=== PATIENT | male | born 1940 | race Caucasian/White ===

== ENCOUNTER → 2018-05-27 16:52 | Outpatient (CLI) | payer MEDICARE, SELFPAY ==
--- NOTE | 2018-05-27 16:54 | DI.MRI.S_ITS ---
PROCEDURE: MR LUMBAR SPINE WO CON INDICATIONS: LOW BACK PAIN TECHNIQUE: Noncontrast sagittal T1 spin echo and T2 fast echo, sagittal STIR, axial T1 and T2 fast spin echo through the lumbar spine. In cases with scoliosis, additional coronal T2 fast spin echo may be performed. COMPARISON: [facility], CR, XR LUMBAR SPINE 2 OR 3 VIEWS, 04/30/2018, 14:01. [facility] [place], CR, XR LUMBAR SPINE 2 OR 3 VIEWS, 05/22/2018, 16:20. FINDINGS: Image quality: Excellent. Alignment and Curvature: Mild dextrocurvature. There is minimal anterolisthesis of L3 on L4. Bone Marrow: Marrow is of normal overall signal. There are degenerative endplate signal changes. Schmorl's nodes are seen in the inferior endplate of L1 and L2. No acute vertebral body compression fractures. Spinal Cord: Conus medullaris terminates at the T12 level. Visualized cord demonstrates normal signal and size. Paraspinous Soft Tissues: No paravertebral masses. There are multiple renal cysts. Left adrenal is thickened without discrete mass. L1-L2: Mild loss of disc height and disc desiccation. There is diffuse posterior disc bulge and disc protrusion. Mild bilateral facet arthropathy. The central canal is moderately narrowed. Severe bilateral foraminal stenosis. L2-L3: Preserved disc height and mild disc desiccation. There is diffuse posterior disc bulge and disc protrusion. Superimposed posterior central disc extrusion is present with a 9 mm herniated disc fragment. Moderate bilateral facet arthropathy severe hypertrophy of ligamentum flavum. The central canal is severely narrowed. Severe bilateral foraminal stenosis. L3-L4: Preserved disc height and mild disc desiccation. There is diffuse posterior disc bulge and disc protrusion. Severe bilateral facet arthropathy. The central canal is severely narrowed. Severe bilateral foraminal stenosis. L4-L5: Laminectomies. Xeye-lb-gadauehn loss of disc height and disc desiccation. There is diffuse posterior disc bulge and disc osteophyte complex. Severe bilateral facet arthropathy. The central canal is patent. Moderate bilateral foraminal stenosis. L5-S1: Laminectomies. Moderate loss of disc height and disc desiccation. There is diffuse posterior disc bulge and disc osteophyte complex. Moderate bilateral facet arthropathy. The central canal is patent. Moderate right and mild left foraminal stenosis. IMPRESSION: 1. Multilevel degenerative and postsurgical changes in the lumbar spine as described. 2. Severe central canal stenosis at L2-L3 and L3-L4, moderate central canal stenosis at L1-L2. 3. Multilevel foraminal stenoses, severe at L1-L2 bilaterally, L2-L3 bilaterally and L3-L4 bilaterally, moderate L4-L5 bilaterally and L5-S1 on the right. Dictated by: Karma Mcelroy M.D. on 05/28/2018 at 9:08 Approved by: Karma Mcelroy M.D. on 05/28/2018 at 9:42
== END ==
PROVIDERS: Visit Provider Orthopaedic Surgery
DX: M54.5 Low back pain (principal); M51.36 Other intervertebral disc degeneration, lumbar region; M51.37 Other intervertebral disc degeneration, lumbosacral region; M48.061 Spinal stenosis, lumbar region without neurogenic claudication; M48.07 Spinal stenosis, lumbosacral region
CPT/HCPCS: 72148

== ENCOUNTER → 2018-09-30 07:54 | Outpatient (CLI) | payer MEDICARE, SELFPAY ==
--- NOTE | 2018-09-30 07:00 | DI.NM.S_ITS ---
PATIENT NAME: ANITA FIGUEROA : 1940 EXAM DATE: 09/30/2018 8:[address] NEEMA ROBERSON M.D. CC: TIFFANY RENTERIA M.D. MODALITY: [place] PATIENT TYPE: Out CONTRAST MEDIA: STATION ID: [id number] FLUORO TIME: PROCEDURE: [place] ARNOL PERF SPECT R&S PHARM Rest and pharmacological stress myocardial perfusion SPECT with gated imaging and ejection fraction RADIOPHARMACEUTICAL: 27.6 mCi Tc-99m tetrafosmin IV at rest and 26 mCi Tc-99m tetrafosmin IV at peak effect of pharmacological stress. Buq-jou-afwktewu was performed. INDICATIONS: Left bundle-branch block, unspecified TECHNIQUE: Radiopharmaceutical was injected at peak stress test, and also at rest. SPECT images were obtained. SPECT myocardial perfusion images were displayed in short axis, horizontal long axis, and vertical long axis views. Gated images were reviewed using LeadSift software. COMPARISON: None. CARDIAC STRESS: A pharmacologic stress test was performed under the supervision of an attending staff, using an infusion of Lexiscan. Hemodynamic data: There is normal blood pressure and heart rate response to pharmacologic stress. Symptoms: The patient denied anginal chest pain. Aminophylline: Not used. EKG: No diagnostic changes of ischemia; no ectopy. FINDINGS: Raw data: There is good myocardial uptake of radiotracer. No significant motion artifacts. Lung-toheart ratio is 0.24 (normal is less than 0.38 for tetrafosmin tracer). Left ventricle function: Gated images demonstrate normal left ventricular wall thickening. No segmental wall motion abnormalities. No transient ischemic dilation; TID is 0.91 (normal less than 1.3). Left ventricle resting end diastolic volume is 150 mL. Left ventricle stress ejection fraction is 66%; normal range is above 45%. Myocardial perfusion: There is a large, moderately severe fixed defect in the septum including the mid anteroseptal, mid inferoseptal, apical septal and apex which is present both at rest and stress. Prone imaging was not performed due to patient's back pain. Th area with perfusion defect as normal wall motion, making it highly unlikely to be a true scar. IMPRESSION: Continued Report - Page 2 of 2 PATIENT NAME: ANITA FIGUEROA : 1940 EXAM DATE: 09/30/2018 8:[address].: NEEMA ROBERSON M.D. CC: TIFFANY RENTERIA M.D. MODALITY: [place] PATIENT TYPE: Out CONTRAST MEDIA: STATION ID: [id number] FLUORO TIME: -Probably normal perfusion study with fixed defect secondary to underlying left bundle branch block. -Normal Ejection fraction. No TID. Dictated by: Nathaniel Giles on 10/01/2018 at 19:28 Approved by: Nathaniel Giles on 10/01/2018 at 19:39
--- NOTE | 2018-09-30 09:21 | PM.TREADMILL ---
Cardiac Stress Test Report Referral & Results Date Patient Seen: 09/30/18 Requesting provider: Elias Valdez Indication: Left bundle branch block Rest ECG: Left bundle branch block Procedure Note: After both written and verbal informed consent the patient had an IV started by the diagnostic imaging RN, and then was hooked up to the treadmill monitoring system. The Lexiscan material, and then the Cardiolite tracer, were administered sequentially. An additional 3 min was spent monitoring the patient while supine on the gurney. The patient had a normal response to all infused materials. Impression: Normal response as above Please see perfusion imaging for details regarding possible ischemia Please note: Actual ECG tracings can be found in the PACS system.
== END ==
PROVIDERS: PCP Family Medicine; Visit Provider Internal Medicine Cardiovascular Disease
DX: I44.7 Left bundle-branch block, unspecified (principal); Z01.810 Encounter for preprocedural cardiovascular examination
CPT/HCPCS: 78452; 93016; 93017; 93018; A9502; J2785

== ENCOUNTER → 2018-10-10 10:11 | Outpatient (CLI) | payer MEDICARE, SELFPAY ==
[2018-10-10 10:52] LABS: Hematocrit 46.8 % (41-53); Hemoglobin 16.2 g/dL (13.5-17.5); Mean Corpuscular HGB Conc 34.7 % (30-36); Mean Corpuscular Hemoglobin 29.7 PG (26-34); Mean Corpuscular Volume 85.6 fL (80-100); Platelet Count 183 X10^3/uL (150-400); Red Blood Cell Count 5.47 X10^6/uL (4.5-5.9); Red Cell Distribution Width 12.8 % (11.6-14.8); White Blood Cell Count 5.8 X10^3/uL (4.5-11.0)
[2018-10-10 11:06] LABS: BUN Creatinine Ratio 16.3 (6-22); Blood Urea Nitrogen 13 mg/dL (9-20); Calcium 9.7 mg/dL (8.4-10.2); Carbon Dioxide 26 mmol/L (22-32); Chloride 104 mmol/L (98-107); Estimated Glomerular Filt Rate > 60.0 mL/min (>60); Glucose 120 mg/dL (80-110); HEMOLYSIS < 15 (0-50); Potassium 4.3 mmol/L (3.4-5.1); Sodium 140 mmol/L (137-145)
== END ==
PROVIDERS: PCP Family Medicine; Visit Provider Orthopaedic Surgery
DX: Z01.818 Encounter for other preprocedural examination (principal)
CPT/HCPCS: 36415; 80048; 85027

== ENCOUNTER 2018-11-08 06:05 | Inpatient (IN) | payer MEDICARE, SELFPAY ==
[2018-10-28 08:57] VITALS: BMI 27.4
[2018-11-08] VITALS (17 sets, daily range): BP systolic 98–152; BP diastolic 53–80; PULSE 65–102; RESP 7–21; TEMP 36.1–36.6; O2SAT 92–99; BMI 27.4
--- NOTE | 2018-11-08 | DI.RAD.S_ITS ---
PROCEDURE: XR LUMBAR SPINE 2-3V INDICATIONS: XLIF L1-2, L2-3, L3-4 TECHNIQUE: 4 views of the lumbar spine were acquired. COMPARISON: [facility], XR LUMBAR SPINE 2 OR 3 VIEWS, 05/22/2018, 16:20. FINDINGS: Bones: 5 bmx-hgd-jxuevvr vertebrae are present. There is normal bony alignment established after placement of transverse pedicle screws and bilateral vertical fixation rods spanning from L1 through L4. No vertebral body compression fractures. No suspicious bony lesions. Soft tissues: Overlying bowel gas pattern is normal. No suspicious soft tissue calcifications. IMPRESSION: Normal alignment established after posterior fusion procedure from L1-L2 through L3-L4. Interbody disc prosthesis placement also appears normal spanning these 3 disc spaces. Dictated by: Jean Pierre Montes De Oca M.D. on 11/08/2018 at 12:55 Approved by: Jean Pierre Montes De Oca M.D. on 11/08/2018 at 13:00
[2018-11-08] MEDS: LACTATED RINGERS 1,000 ML 42 ML IV ×2 (06:50→10:20)
--- NOTE | 2018-11-08 07:26 | PM.PREOP ---
Pre-operative Note Interval Note History & Physical reviewed/Exam performed by Physician: Yes Changes to H&P: No
[2018-11-08] MEDS: fentaNYL 100 MCG/2 ML INJ 50 MCG IV (07:35)
[2018-11-08] MEDS: CEFAZOLIN 2 GM/100 ML FROZ.PIGGY IV ×3 (07:47→23:52)
--- NOTE | 2018-11-08 08:34 | SUR.OPER ---
Right lateral on padded OR table. Head on pillow, gel axillary roll, pillow to support left arm. Legs flexed, pillows between legs, gel pad under down leg and ankle. Multiple passes of 3 inch cloth tape across shoulder, hip, upper and lower legs to secure patient on OR table.
--- NOTE | 2018-11-08 08:35 | SUR.OPER ---
Prone on spine table, head in foam head support, padded chest and pelvic supports, gel pad at knees, lower legs supported by pillows; nipples, genitalia and toes free of pressure, arms secured on foam padded arm boards at <90 degrees abduction. Tape over blanket at thigh secured to table.
[2018-11-08] MEDS: THROMBIN (RECOMBINANT) 5,000 UNIT VIAL 5000 UNIT TOP (08:42)
[2018-11-08] MEDS: VANCOMYCIN 1,000 MG VIAL 1000 MG TOP (08:42)
[2018-11-08] MEDS: SODIUM CHLORIDE 0.9% 1,000 ML, GENTAMICIN 80 MG IRR ×2 (08:43→08:47)
[2018-11-08] MEDS: BUPIVACAINE 0.5% (PF) 4 ML, MORPHINE-PF 4 MG, BUTORPHANOL 1 MG, fentaNYL 100 MCG INJ (08:48)
--- NOTE | 2018-11-08 12:54 | PM.OP.1 ---
Operative Date/Time/Diagnoses Date of procedure: 11/08/18 Time of procedure: 12:54 Pre-op diagnosis: lumbar stenosis with radiculopathy history of lumbar laminectomy Post-op diagnosis: same Procedure & Clinicians Procedure: L1-2, L23, L34 anterior fusion with cages L1-2, L23, L34 posterior fusion L1, L2, L3, L4 screws icbg aspirate L1-2, L2-3 laminectomy L34 revision laminectomy microscope placement of epidural catheter Same procedure as scheduled: Yes Indications: [age] year old male with intractable pain from stenosis. They had failed conservative management and requested operative intervention. Risks and benefits of surgery were discussed and appropriate consents were obtained. Surgeon: Aj Pereyra Building Maintenance Superintendent: Mackenzie Lynn Anesthesia Type: General Operative Notes Findings: None Closure Type: primary Specimen(s): none sent Prosthetic devices, grafts, tissues, transplants, or devices: NuVasive XLIF cages and open and MAS reline screws Applied: catheter Estimated Blood Loss (mL): 10 Blood products transfused: none Procedure in detail: Patient was brought to the operating room and intubated on the table. Time-out was performed. They were then rolled over to the lateral decubitus position with the wdyu-oruh-ga. The table was bent and they were taped down in the correct position. X-rays were taken to confirm a true AP and lateral. Preoperative antibiotics were given. The left flank was prepped and draped in standard sterile fashion. Using fluoroscopy, a 3 cm incision was made above the iliac crest. We bluntly dissected down with Metzenbaum scissors and split the 3 abdominal muscle layers. We dissected out the retroperitoneal space and using finger guidance, brought our 1st dilator down to the psoas muscle. Using neuromonitoring and fluoroscopy, we placed it through the psoas onto the L3-4 disc space in an anterior position and gradually pulled the dilator posteriorly along the disc space. We placed our guidewire and measured our depth for the retractor. We then dilated with the next 2 dilators and then placed our retractor over the dilators. Position was confirmed with fluoroscopy and the retractor was locked down to the bar. We opened up the retractor and checked with neuro monitoring. We then placed the chandrika and again checked with neuro monitoring. The retractor was opened further and the ALL retractor was placed. An annulotomy was performed. We then performed a complete diskectomy with ring curette, pituitary, box osteotome. A Cox was advanced across the disc space under fluoroscopy to release the lateral annulus on the opposite side. We then used sequentially larger trials and confirmed under fluoroscopy. An XLIF cage was packed with Osteocel bone graft and impacted into the L3-4 disc space with fluoroscopy for the anterior fusion at this level. The wound was irrigated. The retractor was closed down. The chandrika was removed. We carefully removed the retractor with direct visualization to make sure there was no neurovascular or abdominal injury. Position was confirmed with x-ray. We then went up to the next level at L2-3. Again we used the dilators with neuro monitoring to reach the disc space. We opened the retractor. We performed a complete diskectomy with lateral annulus release. The endplates were prepped. We trialed and then placed another XLIF cage with bone graft for the anterior fusion at L2-3. The wound was irrigated and we removed the retractor with direct visualization. X-rays were taken. We then went up to L1-2. Again we used dilators with neural monitor to reach the disc space. We opened the retractor. We had used the angled instrumentation but performed a complete diskectomy with lateral annulus release. The endplates were prepped. We trialed and placed another cage with bone graft for the anterior fusion at L1-2. The wound was irrigated and we removed the retractor with direct visualization. Final x-rays were taken. The muscle fascia was closed, superficial tissue was closed. The skin was closed. Sterile dressing was placed. The patient was then rolled over on the well-padded prone position on the Ibrahima table. Using fluoroscopy for localization, a 20 cm incision was made in the midline utilizing part of his previous incision. We dissected down the right sided paraspinal muscles to expose the lamina and confirmed our position. We then exposed the transverse processes at the level of fusion. We then began placing our screws. A bur was used to decorticate the junction of the facet and transverse process. We then advanced a gear shifter down the pedicle using neuro monitoring. We checked with the ball probe to confirm a floor and 4 short on the pedicle. We then tapped also with neuro monitoring. We checked again with the ball probe and then placed our screw with neuro monitoring. The screws were placed in this fashion down the right pedicles of L1, L2, L3, and L4. The bhumika was loosely placed and x-rays were taken to confirm positioning and then the set screws were locked down. We then brought in the microscope. An extensive revision laminectomy was performed at L3-4 with a bur and Kerrison rongeurs. There was a large amount of scar from his previous laminectomy and fusion. We had to cut down through the previous posterior bone mass. When we came to the dura we had carefully isolate and from the overlying scar tissue. There was a large hypertrophic facet osteophyte that had to be removed. The scar from his last surgery went approximately 2/[address] up through this level and hence it was a revision laminectomy level. We carefully depressed the dura to reach to the opposite side and decompress the entire central canal. We cleared out the neural foramen. In the end the ball probe could be placed cephalad and caudally across to the opposite side in the foramen and everything was opened. We then went up to L2-3 and then L1-2. Again, a combination of bur and Kerrison rongeur was used to perform a complete laminectomy including clearing out the opposite side. in the in the ball probe could be placed cephalad caudally and out to the neural foramen everything was open. The wound was copiously irrigated. A small stab incision was made over the PSIS and a Jamshidi needle was placed into the iliac crest and several mL of bone marrow was aspirated. This was mixed with cancellous bone chips, our locally harvested bone graft, as well as the remaining Osteocell and placed in the posterolateral gutter for fusion at L1-2, L2-3, and L3-4. An epidural catheter was primed with 4mL of 0.5% bupivacaine, 100 mcg fentanyl, 4 mg Duramorph, 1 mg Stadol. The dura was depressed under the cephalad lamina with a ball probe and the epidural catheter was gently advanced 6 cm cephalad. The fascia was then closed. The epidural was then injected without resistance. The catheter was pulled and we closed more over the fascia. We then used fluoroscopy and made a 15 cm longitudinal incision on the left side. Bovie came down and split the fascia. We then percutaneously placed Jamshidi needles down the left pedicles of L1 through 4 using fluoroscopic guidance and neural monitoring. These were switched out the guidewires. We tapped, and placed the MAS Reline screws. We measured and placed another bhumika locked down. The wound was irrigated. The fascia was closed. Vancomycin powder was placed in the wounds. The superficial and skin were closed. Sterile dressing was placed. The patient was then rolled over, extubated, brought to the recovery room with no complications. Complications: none Condition: stable Disposition: PACU Plan for aftercare: Inpatient. Up with physical therapy.
[2018-11-08] MEDS: HYDROMORPHONE 2 MG INJ 0.5 MG IV ×2 (14:06→14:13)
[2018-11-08] MEDS: hydrOXYzine 50 MG/ML INJ 25 MG IM (14:12)
--- NOTE | 2018-11-08 15:28 | SUR.PHASEI ---
Pt transferred to the floor with o2 monitor. BP and HR stable. RR 7-10 with intermittent sleep apnea. O2 sat 89-98%ra. Pt sleeping intermittently, then wakes self moaning. Lt flank and back drsg checked with RN. Daily desouza. Spouse at bedside, belongings bag with pt. This RN stayed with pt during shift change report.
--- NOTE | 2018-11-08 15:31 | SUR.PHASEI ---
+ pp to ble, weak movement to ble. + sensation to rob feet.
[2018-11-08] MEDS: CELECOXIB 200 MG CAPSULE 400 MG PO (15:45)
[2018-11-08] MEDS: LACTATED RINGERS 1,000 ML 125 ML IV ×2 (15:49→23:53)
[2018-11-08] MEDS: SENNOSIDES 8.6 MG TABLET 17.2 MG PO (20:33)
[2018-11-08] MEDS: GABAPENTIN 300 MG CAPSULE PO (20:33)
[2018-11-08] MEDS: CELECOXIB 200 MG CAPSULE PO (20:33)
[2018-11-08] MEDS: DOCUSATE 100 MG CAPSULE PO (20:33)
[2018-11-08] MEDS: hydrOXYzine pamoate 25 MG CAPSULE PO (21:51)
[2018-11-09] VITALS (9 sets, daily range): BP systolic 93–128; BP diastolic 46–76; PULSE 75–83; RESP 16–77; TEMP 36.5–37.8; O2SAT 92–97
[2018-11-09] MEDS: HYDROMORPHONE 0.5 MG INJ IV ×3 (00:08→17:08)
--- NOTE | 2018-11-09 03:52 | PC.NURSE ---
Checked & awakened Pt. to re-assess pain level, declined any pain medication @ this time. Encouraged to notify RN. if he needs pain med. Will cont. POC & monitor.
[2018-11-09 05:33] LABS: Hemoglobin 13.2 g/dL (13.5-17.5)
--- NOTE | 2018-11-09 07:52 | PM.PNPO.1 ---
Subjective Date Patient Seen: 11/09/18 Time Patient Seen: 07:52 Interval history: He is sore all over his entire body. Feels like 10 globally. Exam Vital Signs (past 8 hours): - 11/09/18 00:41 11/09/18 04:00 Temperature 98.0 F 100.1 F H Pulse Rate 79 81 Respiratory Rate 16 20 Blood Pressure 121/56 L 118/57 L Pulse Oximetry 97 97 Oxygen Delivery Method Nasal Cannula Oxygen Flow Rate 0 Const Orientation: alert and oriented x3 Back/Spine/Pelvis Other: Dressing saturated but dry. 5/5 motor both lower extremities Objective Labs Result Diagrams: 11/09/18 05:14 Labs: Laboratory Results - last 24 hr 11/09/18 05:14 Hgb 13.2 L Hct 38.0 L Assessment & Plan Post-op Postoperative Procedures Operation Date: 11/08/18 07:45 Actual Procedures Side Surgeon p L1-2,L2-3,L3-4 Ant/Post Instru. fusion & bone graft & laminectomies Aj Pereyra MD He is stable. Mobilize with therapy today. continue to work with pain control. Anticipate discharge in another 2 days.
[2018-11-09] MEDS: AMLODIPINE 5 MG TABLET 10 MG PO (08:54)
[2018-11-09] MEDS: HYDROCODONE/ACET 5/325 TABLET 2 TAB PO ×4 (08:54→21:30)
[2018-11-09] MEDS: DOCUSATE 100 MG CAPSULE PO ×2 (08:54→21:29)
[2018-11-09] MEDS: LISINOPRIL 20 MG TABLET PO (08:54)
[2018-11-09] MEDS: ASPIRIN EC 81 MG TABLET 162 MG PO (08:54)
[2018-11-09] MEDS: hydrOXYzine pamoate 25 MG CAPSULE PO ×2 (08:55→13:07)
--- NOTE | 2018-11-09 09:20 | CM.DANOTE ---
DCP: Case receive, EMR reviewed and met with patient. Introduced self and role. DCP template completed with information currently available. Patient is a 78 yearl old female who admitted yesterday morning to the care of the surgical team. PCP: Dr. Gil. Payer: confirmed: Medicare. Patient came to hospital for surgical procedure. Had L1-2, L23, & L34 fusion. Patient has had chronic history of chronic lower back pain. Met with him and his , Daisy, who was at bedside. He had been having some dizziness. Him and his both live in [place]. He has been independent prior to surgery, but struggling with back pain. He has not used cane or walker in the past, but [facility] P:DCP to continue to follow closely. Will see how he progresses here in hospital, and will consult with physical therapy to assist with the discharge process. Do Zuñiga RN/Progressive Care Manager
[2018-11-09] MEDS: CELECOXIB 200 MG CAPSULE PO ×2 (09:32→21:29)
--- NOTE | 2018-11-09 10:05 | PT.IIE ---
Current Diagnoses Other forms of scoliosis, lumbar region (11/08/18) Spinal stenosis, lumbar region with neurogenic claudication (11/08/18) Arthrodesis status (11/08/18) Surgery Performed Operation Date: 11/08/18 07:45 Actual Procedures p L1-2,L2-3,L3-4 Ant/Post Instru. fusion & bone graft & laminectomies - Aj Pereyra MD Surgical History (Last Updated 10/28/18 @ 09:26 by Pepper Montano RN) H/O left wrist surgery (Acute) History of lumbar fusion (Acute ~1971) History of lumbar fusion (Acute ~1993) History of vasectomy (Acute) Hx of laminectomy (Acute ~05/1992) Hx of thumb surgery (Acute) Hx of tonsillectomy (Acute) S/P cervical spinal fusion (Acute ~2009) S/P hardware removal (Acute ~1997) Status post bilateral cataract extraction (Acute) Medical History (Last Updated 10/28/18 @ 10:03 by Pepper Montano RN) Diabetes (Acute) Easy bruisability (Acute) Former smoker (Acute) Gout (Acute) HTN (hypertension) (Acute) Knee effusion, right (Acute) LBBB (left bundle branch block) (Acute) Numbness and tingling of both legs (Acute) Physical Therapy Inpatient Evaluation/Re-Eval M1 PT/OT-IP Prior Functional Status Start: 11/09/18 10:40 Freq: NEEDED Status: Active Protocol: Document 11/09/18 10:05 [facility] (Rec: 11/09/18 10:55 [facility] [id number]) Medical Review Prior Functional Status Medical History Reviewed Yes Mobility and Gait indep. gait without device Activities of Daily Living and IADL's indep. I/ADLs Social History Household Members spouse Living Arrangements House Number of Floors (Floors) 3 or More Floors Number of Stairs To Enter/Railing? 1 SE into home, 3 steps from kitchen/living room to bedroom with a rail Home Environment High Toilet Walk in Shower Tub/Shower Home Equipment Four Wheel Walker Straight Cane Shower Seat with Backrest Additional Social History Comment Pt with h/o multiple lumbar surgeries, underwent L1-2, L2- 3, L3-4 anterior/posterior instrumented fusion on 11/08/18 . M2 PT-IP Current Condition Start: 11/09/18 10:40 Freq: NEEDED Status: Active Protocol: Document 11/09/18 10:05 [facility] (Rec: 11/09/18 10:55 [facility] [id number]) Physical Therapy Current Condition Current Condition Evaluation Date 11/09/18 Treatment Diagnosis L1-2, L2-3, L3-4 ant/posterior instrum. funsion 11/08/18, impaired gait Precautions Lumbar Precautions Log Roll No Twisting Limit Bending Lifting Restriction of 10 lbs Gait Belt above Incisional Area M3 PT-IP Subjective Start: 11/09/18 10:40 Freq: NEEDED Status: Active Protocol: Document 11/09/18 10:05 [facility] (Rec: 11/09/18 10:55 [facility] [id number]) Subjective Physical Therapy Visit Type Type Initial Evaluation Visit Start Time 10:05 Visit Stop Time 10:30 Total Visit Minutes 25 Notes present during session Number of ACTING PROFESSOR Visits 0 Physical Therapy Visit Comments Patient Comments pt states that he is more comfortable sitting vs lying down. Patient Goals to decrease pain Therapy Pain Assessment Pain When Pain Assessed At Rest Pain Present Pain Present Pain Reported Location Lower Back Intensity 8 Scale Used Numeric (1 - 10) M4 PT-IP Mobility and Gait Start: 11/09/18 10:40 Freq: NEEDED Status: Active Protocol: Document 11/09/18 10:05 [facility] (Rec: 11/09/18 10:55 [facility] [id number]) PT-Bed Mobility Assessment Rolling Type of Rolling Log Rolling Roll to Right Level of Assist Minimal Assistance 1 Person Assistance Supine to Sit Supine to Sit Minimal Assistance 1 Person Assistance Bedrails Scooting Scooting to Edge of Bed Standby Assistance PT-Transfer Assessment Sit to and From Stand Sit to and from Stand Contact Guard Assistance Equipment Transfer Assistive Device Gait Belt Front Wheeled Walker Transfers Transfer Destination Chair Toilet Transfer Technique Stand Step Pivot Transfer Ability Level of Assist Contact Guard Assistance Comments Mobility Comments pt to toilet with flatus but no BM, used rails @ toilet for STS. Gait Assessment Gait Gait Assistance Required: Contact Guard Assist Distance (Feet) 10 Assistive Devices Assistive Device Gait Belt Front Wheeled Walker Gait Deviations General Gait Pattern Antalgic Decreased Stride Length Decreased Feet Clearance Flexed Trunk Step-to Gait Factors Limiting Gait Function Factors Limiting Gait Function Decreased Activity Tolerance Decreased Strength Pain Comments Gait Comments flat foot @ IC bilaterally and B knee flexion likely due to pain PT-Balance Assessment Sitting Balance and Reactions Static Sitting Balance Ability Good Dynamic Sitting Balance Ability Good Standing Balance and Reactions Static Standing Balance Ability Fair Dynamic Standing Balance Ability Fair Device Used FWW M5 PT-IP Objective Assessments Start: 11/09/18 10:40 Freq: NEEDED Status: Active Protocol: Document 11/09/18 10:05 [facility] (Rec: 11/09/18 10:55 [facility] [id number]) Orientation Orientation/Cognition Level of Alertness Alert Gross Range of Motion Lower Extremity ROM Assessment Within Functional Limits Strength Lower Extremity Strength Hip flexion at least 3+/5 B Knee flexion and extension 4/5 B Ankle DF 5/5 B Coordination Assessment Gross Coordination Gross Coordination WNL Sensation Assessment Sensation Gross Sensation WNL Muscle Tone Muscle Tone WNL Yes Other Assessments Other Other Assessments dressing saturated, leaking blood on inferior portion, alerted RN who re-inforced sitting on EOB M6 PT-IP Treatment Start: 11/09/18 10:40 Freq: NEEDED Status: Active Protocol: Document 11/09/18 10:05 [facility] (Rec: 11/09/18 10:55 [facility] [id number]) Physical Therapy Treatment Education Education Provided Precautions Post-Op Packet Safety M7 PT-IP Assessment and Plan Start: 11/09/18 10:40 Freq: NEEDED Status: Active Protocol: Document 11/09/18 10:05 [facility] (Rec: 11/09/18 10:55 [facility] [id number]) PT Summary Assessment and Plan Potential Rehabilitation Potential Good Status of Condition at Evaluation Stable Summary Impairments Pain Strength Bed Mobility Transfers Gait Activity Tolerance Assessment Summary POD #1 anterior/posterior fusion L1-2, L2-3, L3-4. Pt able to ambulate 10 ft with FWW and CGA. He required manual assistance for safe log roll and did use the bed rail to assist with trunk control and rise to sitting. His dressing was saturated upon examination once sitting upright, with leakage. RN reinforced. Pt at the end of session noted pain in low back to be 7/10, slightly less than at rest in bed. Pt will require further ongoing physical therapy to progress toward a safe functional ability to d/c home, but is expected to be able to d/c home pending how he progresses . Goals Bed Mobility Goal Standby Assistance Transfer Goal Standby Assistance Gait Goal Standby Assistance Front Wheel Walker Gait Distance 150 Other Goals up/down 3 steps with unilat. rail and SBA Days to Meet Goals 4 Frequency of Treatment Frequency Of Treatment Twice a Day Treatment Plan Physical Therapy Treatment Plan Bed Mobility Training Transfer Training Gait Training Balance Retraining Post Op Education Discharge Planning Hot or Cold Pack Neuromuscular Re-ed Other Recommendations and Next Treatment review precautions, progress Focus gait and log roll. Recommendations To Nursing Amount of Assist Needed 1 Person Assist Discharge Recommendations PT Discharge Recommendations Home with Assistance Equipment Needed for Home Before may need FWW if not safe to Discharge use 4WW with mobility- will need to trial prior to d/c
--- NOTE | 2018-11-09 10:41 | PC.NURSE ---
Patient up with P.T. to bathroom and then into chair/ 1 assist with walker. Dressing to back re-inforced with ABD pads and paper tape. Patient denies numbness/tingling, moving all extremities. Pain to back as well as generalized but improved per patient to a 7/10 at this time. Call light within in reach. Chair alarm on for safety. at side. COntinue to monitor.
--- NOTE | 2018-11-09 12:30 | PT.IPTN ---
Current Diagnoses Other forms of scoliosis, lumbar region (11/08/18) Spinal stenosis, lumbar region with neurogenic claudication (11/08/18) Arthrodesis status (11/08/18) Surgery Performed Operation Date: 11/08/18 07:45 Actual Procedures p L1-2,L2-3,L3-4 Ant/Post Instru. fusion & bone graft & laminectomies - Aj Pereyra MD Physical Therapy Treatment Note M2 PT-IP Current Condition Start: 11/09/18 10:40 Freq: NEEDED Status: Active Protocol: Document 11/09/18 10:05 [facility] (Rec: 11/09/18 10:55 [facility] [id number]) Physical Therapy Current Condition Current Condition Evaluation Date 11/09/18 Treatment Diagnosis L1-2, L2-3, L3-4 ant/posterior instrum. funsion 11/08/18, impaired gait Precautions Lumbar Precautions Log Roll No Twisting Limit Bending Lifting Restriction of 10 lbs Gait Belt above Incisional Area M3 PT-IP Subjective Start: 11/09/18 10:40 Freq: NEEDED Status: Active Protocol: Document 11/09/18 12:30 [facility] (Rec: 11/09/18 14:33 [facility] [id number]) Subjective Physical Therapy Visit Type Type Treatment Note Visit Start Time 12:30 Visit Stop Time 12:35 Total Visit Minutes 5 Number of LAB COORDINATOR Visits 0 Physical Therapy Visit Comments Patient Comments pt willing to ambulate, reports pain is better. M4 PT-IP Mobility and Gait Start: 11/09/18 10:40 Freq: NEEDED Status: Active Protocol: Document 11/09/18 12:30 [facility] (Rec: 11/09/18 14:33 [facility] [id number]) PT-Transfer Assessment Sit to and From Stand Sit to and from Stand Contact Guard Assistance Equipment Transfer Assistive Device Gait Belt Front Wheeled Walker Transfers Transfer Destination Chair Transfer Ability Level of Assist Contact Guard Assistance Gait Assessment Gait Gait Assistance Required: Contact Guard Assist Distance (Feet) 5 Assistive Devices Assistive Device Gait Belt Front Wheeled Walker Gait Deviations General Gait Pattern Antalgic Decreased Stride Length Decreased Feet Clearance Factors Limiting Gait Function Factors Limiting Gait Function Decreased Activity Tolerance Pain Comments Gait Comments pt with leakage from dressing, blood dripping onto floor. Discontinued gait and notified RN who is waiting for MD call back for order for dressing change. M5 PT-IP Objective Assessments Start: 11/09/18 10:40 Freq: NEEDED Status: Active Protocol: Document 11/09/18 10:05 [facility] (Rec: 11/09/18 10:55 [facility] [id number]) Orientation Orientation/Cognition Level of Alertness Alert Gross Range of Motion Lower Extremity ROM Assessment Within Functional Limits Strength Lower Extremity Strength Hip flexion at least 3+/5 B Knee flexion and extension 4/5 B Ankle DF 5/5 B Coordination Assessment Gross Coordination Gross Coordination WNL Sensation Assessment Sensation Gross Sensation WNL Muscle Tone Muscle Tone WNL Yes Other Assessments Other Other Assessments dressing saturated, leaking blood on inferior portion, alerted RN who re-inforced sitting on EOB M6 PT-IP Treatment Start: 11/09/18 10:40 Freq: NEEDED Status: Active Protocol: Document 11/09/18 10:05 [facility] (Rec: 11/09/18 10:55 [facility] [id number]) Physical Therapy Treatment Education Education Provided Precautions Post-Op Packet Safety M7 PT-IP Assessment and Plan Start: 11/09/18 10:40 Freq: NEEDED Status: Active Protocol: Document 11/09/18 12:30 [facility] (Rec: 11/09/18 14:33 [facility] [id number]) PT Summary Assessment and Plan Summary Assessment Summary Treatment was stopped this session after 5 min due to pt' s dressing leaking, and blood going onto the floor. He required only CGA for sit<-> stand and ambulation for a short distance, but unable to progress due to dressing condition and blood on floor causing a fall risk/hazard, amongst other concerns. Goals Bed Mobility Goal Standby Assistance Transfer Goal Standby Assistance Gait Goal Standby Assistance Front Wheel Walker Gait Distance 150 Other Goals up/down 3 steps with unilat. rail and SBA Days to Meet Goals 4 Frequency of Treatment Frequency Of Treatment Twice a Day Treatment Plan Other Recommendations and Next Treatment gait progression, log roll and Focus reviewing of precautions Recommendations To Nursing Amount of Assist Needed 1 Person Assist Discharge Recommendations PT Discharge Recommendations Home with Assistance Equipment Needed for Home Before may need FWW if not safe to Discharge use 4WW with mobility- will need to trial prior to d/c
--- NOTE | 2018-11-09 13:00 | PC.NURSE ---
bloody drainage noted to be leaking again from underneath re-inforced dressing. No orders to change original surgical dressing, reinforcement only. Dr. Camargo (stone banker) paged. Awaiting return call at this time. Continue to monitor.
[2018-11-09] MEDS: INSULIN ASPART 100 UNIT/ML INSULN PEN SUBCUT ×2 (13:08→16:33)
--- NOTE | 2018-11-09 13:39 | OT.IP.EVAL ---
Current Diagnoses Other forms of scoliosis, lumbar region (11/08/18) Spinal stenosis, lumbar region with neurogenic claudication (11/08/18) Arthrodesis status (11/08/18) Surgery Performed Operation Date: 11/08/18 07:45 Actual Procedures p L1-2,L2-3,L3-4 Ant/Post Instru. fusion & bone graft & laminectomies - Aj Pereyra MD Past Medical History (Last Updated 10/28/18 @ 10:03 by Pepper Montano RN) Diabetes (Acute) Easy bruisability (Acute) Former smoker (Acute) Gout (Acute) HTN (hypertension) (Acute) Knee effusion, right (Acute) LBBB (left bundle branch block) (Acute) Numbness and tingling of both legs (Acute) Surgical History (Last Updated 10/28/18 @ 09:26 by Pepper Montano RN) H/O left wrist surgery (Acute) History of lumbar fusion (Acute ~1971) History of lumbar fusion (Acute ~1993) History of vasectomy (Acute) Hx of laminectomy (Acute ~05/1992) Hx of thumb surgery (Acute) Hx of tonsillectomy (Acute) S/P cervical spinal fusion (Acute ~2009) S/P hardware removal (Acute ~1997) Status post bilateral cataract extraction (Acute) Occupational Therapy Inpatient Evaluation/Re-Eval M1 PT/OT-IP Prior Functional Status Start: 11/09/18 10:40 Freq: NEEDED Status: Active Protocol: Document 11/09/18 13:25 [facility] (Rec: 11/09/18 13:39 [facility] [id number]) Medical Review Prior Functional Status Medical History Reviewed Yes Mobility and Gait indep. gait without device Activities of Daily Living and IADL's indep. 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 Enjoys doing yard work and working on projects in the garage. Social History Household Members spouse Living Arrangements House Number of Floors (Floors) 3 or More Floors Number of Stairs To Enter/Railing? 1 SE into home, 3 steps from kitchen/living room to bedroom with a rail Home Environment Standard Height Toilet Walk in Shower Tub/Shower Home Equipment Four Wheel Walker Straight Cane Shower Seat with Backrest Employment Status Retired Additional Social History Comment Pt with h/o multiple lumbar surgeries, underwent L1-2, L2- 3, L3-4 anterior/posterior instrumented fusion on 11/08/18 . M2 OT-IP Current Condition Start: 11/09/18 13:25 Freq: Status: Active Protocol: Document 11/09/18 13:25 [facility] (Rec: 11/09/18 13:39 [facility] [id number]) Occupational Therapy Current Condition Current Condition Evaluation Date 11/09/18 Treatment Diagnosis L1-2, L2-3, L3-4 anterior/ posterior instrumented fusion Diagnosis Onset Date 11/08/18 Post Operative Precautions Lumbar Precautions Log Roll No Twisting Limit Bending Lifting Restriction of 10 lbs Gait Belt above Incisional Area M3 OT- IP Subjective and Pain Start: 11/09/18 13:25 Freq: Status: Active Protocol: Document 11/09/18 13:25 [facility] (Rec: 11/09/18 13:39 [facility] [id number]) OT- Subjective Occupational Therapy Visit Type Type Initial Evaluation Visit Start Time 11:00 Visit Stop Time 12:08 Total Visit Minutes 68 Occupational Therapy Visit Comments Patient Comments Pt agreeable to OT services. Declined need for bathroom. Patient/Caregiver Goals To get back home and doing projects. OT Pain Assessment Pain When Pain Assessed At Rest Pain Present Pain Present Pain Reported Location Lower Back Intensity 7 Scale Used Numeric (1 - 10) M4 OT- IP ADL's Start: 11/09/18 13:25 Freq: Status: Active Protocol: Document 11/09/18 13:25 [facility] (Rec: 11/09/18 13:39 [facility] [id number]) OT [id number] General Evaluation Self-Feeding Ability Independent OT ADL-Dressing General Eval Upper Body Dressing Ability Independent Lower Body Dressing Ability Independent Areas Needing Assistance Underpants/Brief Socks Shoes Assistive Devices Dressing Assistive Devices Dressing Stick Detective Sergeant Sock Aid Comments OT Dressing Comments Performed all lower body dressing with use of hip kit. Assisted pt with finding hip kit on phone to order for home use. OT ADL-Toileting Comments OT Toileting Comments Pt declined performing on this day but voiced concern for back pericare after BM once home. Pt educated on equipment ideas and discussed how to properly use them. OT ADL-Bathing Comments OT Bathing Comments Pt declined to perform on this date but discussed home set up, need for adjustabel shower chair ( to borrow) and grab bars. M5 OT- IP IADL's Start: 11/09/18 13:25 Freq: Status: Active Protocol: Document 11/09/18 13:25 [facility] (Rec: 11/09/18 13:39 [facility] [id number]) OT-Instrumental Activities of Daily Living Home Safety Awareness Awareness of Need for Assistance at Home Good Awareness Ability to Problem Solve Emergency Able to Problem Solve Situations M6 OT- IP Functional Cognition Start: 11/09/18 13:25 Freq: Status: Active Protocol: Document 11/09/18 13:25 [facility] (Rec: 11/09/18 13:39 [facility] [email or web address]) Cognitive Factors Limiting Selfcare Function Cognitive Ability Level of Alertness Alert Patient Orientation Name Age Birthday Month Date Day of Week Place Situation Attention Span Ability Capable of Focused Attention Ability to Follow Commands Able to Follow Multi-Step Commands Memory Description No Deficits Noted Safety Awareness No Deficits Noted Problem Solving Ability No deficits Noted Executive Function Ability No Deficits Noted Abstract Thinking Ability No Deficits Noted OT- Vision and Hearing OT- Hearing Assessment OT- Hearing Assessment WFL OT- Vision Assessment Visual Acuity Glasses For Reading Visual Attentiveness WFL Occular Pursuits WFL Visual Convergence WFL Visual Damon WFL Diplopia Absent Visual Spacial Neglect Not Applicable Vision Assessment Comments Pt had eye surgery about a year ago. M7 OT- IP Mobility and Balance Start: 11/09/18 13:25 Freq: Status: Active Protocol: Document 11/09/18 13:25 [facility] (Rec: 11/09/18 13:39 [facility] [email or web address]) OT-Transfer Assessment Sit to and From Stand Sit to and from Stand Contact Guard Assistance Use of Upper Extremities Transfers Transfer Ability Contact Guard Assistance Use of Upper Extremities Technique Transfer Destination Chair Devices Transfer Assistive Devices Gait Belt Front Wheeled Walker Comments Mobility Comments Educated pt on safe use of walker for sit to stand. Adjusted up one setting for more upright posture. OT- Gait Assessment Gait Gait Assistance Required: Contact Guard Assist Able to Maintain Weight Bearing Status Yes During Gait Assistive Devices Assistive Device Gait Belt Front Wheeled Walker OT- Balance Assessment Sitting Balance and Reactions Static Sitting Balance Ability Normal Dynamic Sitting Balance Ability Normal Standing Balance and Reactions Static Standing Balance Ability Good M8 OT- IP Objective Assessments Start: 11/09/18 13:25 Freq: Status: Active Protocol: Document 11/09/18 13:25 [facility] (Rec: 11/09/18 13:39 [facility] [email or web address]) OT Gross Range of Motion Upper Extremity Range of Motion Assessment Within Functional Limits OT Strength Upper Extremity Strength Assessment Within Functional Limits Comments Strength Comments Pt tolerated minimal pressure with shld testing d/t back pain. Arthritic changes noted to B hands which prevents increased strength and coordination but currently WFL . Educated pt to discuss arthritic changes with GP for possible treatment. OT- Coordination Assessment Upper Extremity Finger to Nose Test Within Functional Limits Finger Tapping Test Within Functional Limits OT Sensation Assessment Comments Summary Comments WFL to BUE M9 OT- IP Assessment and Plan Start: 11/09/18 13:25 Freq: Status: Active Protocol: Document 11/09/18 13:25 [facility] (Rec: 11/09/18 13:39 [facility] [id number]) OT Summary Assessment and Plan Potential Rehabilitation Potential Excellent Analytic Complexity at Evaluation Moderate Summary OT Impairments Pain Range of Motion Functional Mobility Dressing Frequency of Treatment Frequency Of Treatment Discharge Discharge Recommendations OT Discharge Recommendations Home with Assistance Home Equipment Needs Recommend hip kit for home dressing, 2ww for mobility ( will defer to P.T. recommendation at time of discharge), 3 in 1 commode for over the toilet heightner and arm rails, and adjustable shower chair for comfort with showering. Pt's to obtain from [facility].
--- NOTE | 2018-11-09 13:47 | PC.NURSE ---
Patient's dressing has stopped oozing/leaking at this time. Patient assisted into bed after tolerating the chair for some time. Patient reports new area of numbness to left upper thigh after he had gotten back into bed. Denies any other areas of numbness or tingling. Had not heard back from Dr. Camargo (director decision support) yet. Left message on Dr. Pereyra's voicemail to return call if available. Will continue to follow and re-page Dr. Camargo. Bed alarm on,call light within reach. Ambrosio remains intact. Foot SCD's in place.
--- NOTE | 2018-11-09 14:02 | PC.NURSE ---
Dr Pereyra returned phone call, order to change dressing on back obtained. And notified of patient's c/o of numbness to left thigh.
[2018-11-09] MEDS: SENNOSIDES 8.6 MG TABLET 17.2 MG PO (21:29)
[2018-11-09] MEDS: GABAPENTIN 300 MG CAPSULE PO (21:29)
[2018-11-09] MEDS: diazePAM 5 MG TABLET PO (21:30)
[2018-11-09] MEDS: SODIUM CHLORIDE 0.9% FLUSH 10 ML IV (21:30)
[2018-11-10 00:40] VITALS: BP 111/63; PULSE 68; RESP 16; TEMP 36.7; O2SAT 93
--- NOTE | 2018-11-10 03:55 | PC.NURSE ---
0300 Awakened pt. by another RN NR. ALISB to offered 2 tabs. of Vicodin, but he declined. Will monitor & re-assess his pain level again. Will cont. POC.
[2018-11-10 04:00] VITALS: BP 125/64; PULSE 70; RESP 16; TEMP 37.2; O2SAT 96
[2018-11-10] MEDS: HYDROCODONE/ACET 5/325 TABLET 2 TAB PO ×2 (06:11→10:44)
--- NOTE | 2018-11-10 06:43 | PC.NURSE ---
Medicated with 2 tabs. Vicodin pain level 7/10. Back dressing noted moderate amount of sero-sang. drainage dressing changed @ 0635 & lauren CASTORENA'd @ 0630. Urinal @ the bedside & encouraged to call for assistance. Will cont. POC & monitor.
[2018-11-10 07:53] VITALS: BP 113/48; PULSE 67; RESP 16; TEMP 37.1; O2SAT 92
--- NOTE | 2018-11-10 09:00 | PT.IPTN ---
Current Diagnoses Other forms of scoliosis, lumbar region (11/08/18) Spinal stenosis, lumbar region with neurogenic claudication (11/08/18) Arthrodesis status (11/08/18) Surgery Performed Operation Date: 11/08/18 07:45 Actual Procedures p L1-2,L2-3,L3-4 Ant/Post Instru. fusion & bone graft & laminectomies - Aj Pereyra MD Physical Therapy Treatment Note M2 PT-IP Current Condition Start: 11/09/18 10:40 Freq: NEEDED Status: Active Protocol: Document 11/09/18 10:05 [facility] (Rec: 11/09/18 10:55 [facility] [id number]) Physical Therapy Current Condition Current Condition Evaluation Date 11/09/18 Treatment Diagnosis L1-2, L2-3, L3-4 ant/posterior instrum. funsion 11/08/18, impaired gait Precautions Lumbar Precautions Log Roll No Twisting Limit Bending Lifting Restriction of 10 lbs Gait Belt above Incisional Area M3 PT-IP Subjective Start: 11/09/18 10:40 Freq: NEEDED Status: Active Protocol: Document 11/10/18 09:00 [facility] (Rec: 11/10/18 09:31 [facility] [id number]) Subjective Physical Therapy Visit Type Type Treatment Note Visit Start Time 09:00 Visit Stop Time 09:20 Total Visit Minutes 20 Number of BRANCH BANKER Visits 0 Physical Therapy Visit Comments Patient Comments pt states he is managing, he feels stiff but overall better than yesterday. He just walked around the loop with the vice president of nursing. Therapy Pain Assessment Pain When Pain Assessed At Rest Pain Present Pain Present Pain Reported Location Lower Back Intensity 5 Scale Used Numeric (1 - 10) M4 PT-IP Mobility and Gait Start: 11/09/18 10:40 Freq: NEEDED Status: Active Protocol: Document 11/10/18 09:00 [facility] (Rec: 11/10/18 09:31 [facility] [id number]) PT-Transfer Assessment Sit to and From Stand Sit to and from Stand Independent Equipment Transfer Assistive Device Gait Belt Front Wheeled Walker Transfers Transfer Destination Chair Toilet Transfer Technique Stand Step Pivot Transfer Ability Level of Assist Standby Assistance Comments Mobility Comments attempted BM, just flatus but pt did urinate- alerted YARD CLEANER Gait Assessment Gait Gait Assistance Required: Standby Assistance Distance (Feet) 220 Assistive Devices Assistive Device Gait Belt Front Wheeled Walker Gait Deviations General Gait Pattern Antalgic Factors Limiting Gait Function Factors Limiting Gait Function Decreased Activity Tolerance Decreased Strength Pain Stair Climbing Assessment Evaluation Level of Assist On Stairs Standby Assistance Devices Stair Climbing Assistive Devices Left Railing Right Railing Technique/Endurance Stair Climbing Direction Ascend and Descend Stair Climbing Technique Step to Step Number of Steps Climbed 3 Query Text: Stair Climbing Set # Repetitions (reps) 1 Comments Stair Climbing Comments has B rails at home M5 PT-IP Objective Assessments Start: 11/09/18 10:40 Freq: NEEDED Status: Active Protocol: Document 11/09/18 10:05 [facility] (Rec: 11/09/18 10:55 [facility] [id number]) Orientation Orientation/Cognition Level of Alertness Alert Gross Range of Motion Lower Extremity ROM Assessment Within Functional Limits Strength Lower Extremity Strength Hip flexion at least 3+/5 B Knee flexion and extension 4/5 B Ankle DF 5/5 B Coordination Assessment Gross Coordination Gross Coordination WNL Sensation Assessment Sensation Gross Sensation WNL Muscle Tone Muscle Tone WNL Yes Other Assessments Other Other Assessments dressing saturated, leaking blood on inferior portion, alerted RN who re-inforced sitting on EOB M6 PT-IP Treatment Start: 11/09/18 10:40 Freq: NEEDED Status: Active Protocol: Document 11/10/18 09:00 [facility] (Rec: 11/10/18 09:31 [facility] [id number]) Physical Therapy Treatment Education Education Provided Precautions Safety M7 PT-IP Assessment and Plan Start: 11/09/18 10:40 Freq: NEEDED Status: Active Protocol: Document 11/10/18 09:00 [facility] (Rec: 11/10/18 09:31 [facility] [id number]) PT Summary Assessment and Plan Summary Progress Towards Goals Safe For Discharge Assessment Summary POD #2. Pt able to manage stairs and ambulate in hallway with FWW and SBA. Pt does take increased time for transitional movements due to pain, but good hinging of hips to prevent lumbar spine flexion. Pt appears to be safe to return home with assist when medically stable. Pt used bilateral rails today, but he clarified that he does have 2 rails on each side to use to go up/down stairs inside. Goals Bed Mobility Goal Standby Assistance Transfer Goal Standby Assistance Gait Goal Standby Assistance Front Wheel Walker Gait Distance 150 Other Goals up/down 3 steps with unilat. rail and SBA Days to Meet Goals 4 Frequency of Treatment Frequency Of Treatment Twice a Day Treatment Plan Other Recommendations and Next Treatment 4WW trial with gait Focus Recommendations To Nursing Amount of Assist Needed 1 Person Assist Discharge Recommendations PT Discharge Recommendations Home with Assistance Equipment Needed for Home Before may need FWW if not safe to Discharge use 4WW with mobility- will need to trial prior to d/c
[2018-11-10] MEDS: AMLODIPINE 5 MG TABLET 10 MG PO (09:25)
[2018-11-10] MEDS: SODIUM CHLORIDE 0.9% FLUSH 10 ML IV (09:27)
[2018-11-10] MEDS: DOCUSATE 100 MG CAPSULE PO (09:27)
[2018-11-10] MEDS: COLCHICINE 0.6 MG TABLET PO (09:27)
[2018-11-10] MEDS: CELECOXIB 200 MG CAPSULE PO (09:28)
[2018-11-10] MEDS: LISINOPRIL 20 MG TABLET PO (09:28)
[2018-11-10] MEDS: hydrOXYzine pamoate 25 MG CAPSULE PO (10:44)
[2018-11-10] MEDS: INSULIN ASPART 100 UNIT/ML INSULN PEN SUBCUT (11:51)
[2018-11-10 11:56] VITALS: BP 120/57; PULSE 72; RESP 16; TEMP 36.9; O2SAT 92
--- NOTE | 2018-11-10 12:08 | PC.NURSE ---
Addendum entered by Ibeth Mcgraw R.N. 11/10/18 13:25: DC - pt up w/fww ambul br and voided again prior to dc, scripts provided earlier and spouse was able to slate picker at pharmacy, reviewed dc instructions with pt and spouse, extra dsg supplies provided, tsf to wc with belongings, saline lock removed, has clothing, bag and glasses and cell phone, tsf to wc and escorted by experimental technician to family car. Original Note: Addendum entered by Ibeth Mcgraw R.N. 11/10/18 13:23: [employer] - prior to dc home, removed the back dsg, parallel stapled incisions intact, some slight serosang drainage at distal end, reiinforced with 4x4 and then barrier dsgs applied over. Original Note: AM NOTE - pt awakened for breakfast, states back discomfort 6 on scale 0/10, discussed medications, declined any muscle relaxants initially, later up with phys therapy and ambul into hallway, to br and voided after aguilar dc'd, bulky dsg back cdi, small tape fluid filled blister l flank, dsg removed and replaced with barrier dsg, Dr. Khan in and pt will dc home, scripts for norco and vistaril were written, given to spouse who will drop off at [facility] here in [place] as they live [facility], after PT, given norco x2 tabs and 25mg po vistaril.
--- NOTE | 2018-11-10 12:32 | PM.PNPO.1 ---
Subjective Date Patient Seen: 11/10/18 Time Patient Seen: 09:00 Interval history: Patient is now postop day 2 status post L1 through 4 fusion laminotomy. Surgery and postop care by Dr. Pereyra. Patient has made excellent progress, and although he still complains of back pain and leg numbness he feels he is markedly improved compared with yesterday. His nurse reports that he is still having a little bit of drainage from his incision. Exam Vital Signs (past 8 hours): - 11/10/18 07:53 11/10/18 11:56 Temperature 98.7 F 98.4 F Pulse Rate 67 72 Respiratory Rate 16 16 Blood Pressure 113/48 L 120/57 L Pulse Oximetry 92 92 Oxygen Delivery Method Room Air Oxygen Flow Rate 0 Narrative Exam Narrative: Dressing appears dry and intact distal neurovascular examination symmetric with slight decreased sensation in both lower extremities. Objective Labs Result Diagrams: 11/09/18 05:14 Assessment & Plan Post-op Postoperative Procedures Operation Date: 11/08/18 07:45 Actual Procedures Side Surgeon p L1-2,L2-3,L3-4 Ant/Post Instru. fusion & bone graft & laminectomies Aj Pereyra MD Postoperative day: 2 Postoperative status: doing well Postoperative plan: routine post-op care Postoperative plan narrative: Patient is ready for discharge to home. Follow-up plan with Dr. Preeyra
--- NOTE | 2018-11-10 12:36 | P.PN_ITS ---
Subjective Date Patient Seen: 11/10/18 Time Patient Seen: 09:00 Interval history: Patient is now postop day 2 status post L1 through 4 fusion laminotomy. Surgery and postop care by Dr. Pereyra. Patient has made excellent progress, and although he still complains of back pain and leg num bness he feels he is markedly improved compared with yesterday. His nurse reports that he is still having a little bit of drainage from his incision. Exam Vital Signs (past 8 hours): - 11/10/18 07:53 11/10/18 11:56 Temperature 98.7 F 98.4 F Pulse Rate 67 72 Respiratory Rate 16 16 Blood Pressure 113/48 L 120/57 L Pulse Oximetry 92 92 Oxygen Delivery Method Room Air Oxygen Flow Rate 0 Narrative Exam Narrative: Dressing appears dry and intact distal neurovascular examination symmetric with slight decreased sensation in both lower extremities. Objective Labs Result Diagrams: 11/09/18 05:14 Assessment & Plan Post-op Postoperative Procedures Operation Date: 11/08/18 07:45 Actual Procedures Side Surgeon p L1-2,L2-3,L3-4 Ant/Post Instru. fusion & bone graft & laminectomies Aj Pereyra MD Postoperative day: 2 Postoperative status: doing well Postoperative plan: routine post-op care Postoperative plan narrative: Patient is ready for discharge to home. Follow-up plan with Dr. Pereyra
--- NOTE | 2018-11-10 12:41 | CM.DPC ---
DCP Cont: Checked in with patient. He is being discharged home today. When this embedded case manager first checked in, patient had been ambulating with physical therapy, and was in pain. was at bedside trying to get him comfortable with pillows. Checked in later on. Patient awake, watching television. He stated, he feels ok about going home today. Patient signed updated IMM form. Patient is being discharged with prescriptions, that will be dropping off at pharmacy. They reside near [place], on [facility]. He will also be following up with his primary provider, Dr. Gil. P: Patient is to be discharged home today. Do Zuñiga RN/Respiratory Scientist
--- NOTE | 2018-11-10 13:19 | PT.IPTN ---
Current Diagnoses Other forms of scoliosis, lumbar region (11/08/18) Spinal stenosis, lumbar region with neurogenic claudication (11/08/18) Arthrodesis status (11/08/18) Surgery Performed Operation Date: 11/08/18 07:45 Actual Procedures p L1-2,L2-3,L3-4 Ant/Post Instru. fusion & bone graft & laminectomies - Aj Pereyra MD Physical Therapy Treatment Note M2 PT-IP Current Condition Start: 11/09/18 10:40 Freq: NEEDED Status: Active Protocol: Document 11/09/18 10:05 [facility] (Rec: 11/09/18 10:55 [facility] [id number]) Physical Therapy Current Condition Current Condition Evaluation Date 11/09/18 Treatment Diagnosis L1-2, L2-3, L3-4 ant/posterior instrum. funsion 11/08/18, impaired gait Precautions Lumbar Precautions Log Roll No Twisting Limit Bending Lifting Restriction of 10 lbs Gait Belt above Incisional Area M3 PT-IP Subjective Start: 11/09/18 10:40 Freq: NEEDED Status: Active Protocol: Document 11/10/18 13:18 [facility] (Rec: 11/10/18 13:19 [facility] [id number]) Subjective Physical Therapy Visit Type Type Patient Refusal Notes pt refused physical therapy this afternoon, would like to save his energy for going home . He does not want to trial 4WW today, stating I will be okay. Goals Bed Mobility Goal Standby Assistance Transfer Goal Standby Assistance Gait Goal Standby Assistance Front Wheel Walker Gait Distance 150 Other Goals up/down 3 steps with unilat. rail and SBA Days to Meet Goals 4 Frequency of Treatment Frequency Of Treatment Twice a Day Treatment Plan Other Recommendations and Next Treatment 4WW trial with gait Focus Recommendations To Nursing Amount of Assist Needed 1 Person Assist Discharge Recommendations PT Discharge Recommendations Home with Assistance Equipment Needed for Home Before may need FWW if not safe to Discharge use 4WW with mobility- will need to trial prior to d/c
--- NOTE | 2018-11-21 10:45 | P.DS_ITS ---
History of Present Illness Chief complaint: [id number] Discharge Providers Date of admission: 11/08/18 06:05 Discharge Date: 11/10/18 Primary care physician: Arden Gil MD Consults: 11/08/18 14:56 Consult to Occupational Therapy Evaluate & Treat Comment: Physician Instructions: Evaluate and treat Consult to Physical Therapy Evaluate & Treat Comment: Physician Instructions: Evaluate and Treat Discharge provider: Krystian Ortiz PA-C Summary Discharge Diagnosis: status post: L1-2, L23, L34 anterior fusion with cages L1-2, L23, L34 posterior fusion L1, L2, L3, L4 screws icbg aspirate L1-2, L2-3 laminectomy L34 revision laminectomy Hospital Course: ure as scheduled: Yes Indications: [age] year old male with intractable pain from stenosis. They had failed conservative management and requested operative intervention. Risks and benefits of surgery were discussed and appropriate consents were obtained. Surgeon: Aj Pereyra Director Of Search Engine Marketing: Mackenzie yLnn Anesthesia Type: General Status at Discharge Cognitive/behavioral status at discharge: at baseline, oriented Functional status at discharge: uses cane/walker Overall status at discharge: patient is progressing back to baseline Time Spent with Patient Less than 30 minutes Exam Vital Signs (past 8 hours): Oxygen Delivery Method Room Air Oxygen Flow Rate 0 Narrative Exam Narrative: see progress note 11/10/18 Objective Labs Result Diagrams: 11/09/18 05:14 Discharge Plan Discharge Plan Patient Disposition: Home Discharge Med Rec/Prescriptions Prescriptions: New hydroxyzine pamoate 25 mg Capsule 25 mg PO Q4HR PRN (Reason: Nausea And Vomiting) Qty: 30 RF: 0 hydrocodone-acetaminophen 5-325 mg Tablet 2 tab PO Q4HR PRN (Reason: Pain, Severe (7-10)) Qty: 0 RF: 0 Continued lisinopril 20 mg Tablet 20 mg PO DAILY RF: 0 amlodipine 10 mg Tablet 10 mg PO DAILY RF: 0 ibuprofen [Advil] 200 mg Tablet 600 mg PO TID PRN (Reason: pain) RF: 0 tizanidine 4 mg Capsule 4 mg PO DAILY PRN (Reason: Muscle Pain) RF: 0 colchicine 0.6 mg Capsule 0.6 mg PO DAILY RF: 0 aspirin 162.5 mg Capsule,Extended Release 24hr 162.5 mg PO DAILY RF: 0 Follow up/Referrals: Arden Gil MD [Primary Care Provider] - Provider Discharge Instructions Diet: Diet as Tolerated Skin/Wound/Dressing Care Report to your healthcare provider any signs of infection, such as:: chills, fever, increased pain, unusual drainage and unusual redness Dressing: keep dry and intact, change as needed Visit Report/Discharge Packet Instructions: DI for Laminectomy, DI for Lateral Lumbar Interbody Fusion Discharge Data Primary Care Provider: Arden Gil Attending Provider: Aj Pereyra Admit Date/Time: 11/08/18 06:05 Discharges patient from system. Discharge Date/Time: 11/10/18 13:27
== END 2018-11-10 13:27 | disposition home or self-care (01) | DRG 455 ==
PROVIDERS: Admitting Provider Orthopaedic Surgery; PCP Family Medicine; Visit Provider Orthopaedic Surgery
PROC: 0SG00A0 Fusion of Lumbar Vertebral Joint with Interbody Fusion Device, Anterior Approach, Anterior Column, Open Approach (ICD-10-PCS; CPT 22558; principal; 2018-11-08 07:45)
DX: M48.062 Spinal stenosis, lumbar region with neurogenic claudication (principal); M41.86 Other forms of scoliosis, lumbar region; I10 Essential (primary) hypertension; Z87.891 Personal history of nicotine dependence; M96.1 Postlaminectomy syndrome, not elsewhere classified
CPT/HCPCS: 36415; 72100; 76000; 82962; 85014; 85018; 94762; 97116; 97161; 97166; 97535; C1776; J0595; J0690; J1170; J2274; J2405; J2704; J3010; J3410

== ENCOUNTER → 2023-02-06 | Outpatient (CLI) | payer MEDICARE, SELFPAY ==
[2018-11-08 16:13] VITALS: BMI 27.4
--- NOTE | 2023-02-06 | DI.MRI.S_ITS ---
PROCEDURE: MR LUMBAR SPINE WO/W CON INDICATIONS: spinal stenosis, lumbar region TECHNIQUE: Noncontrast sagittal T1 spin echo and T2 fast spin echo, sagittal STIR, axial T1 and T2 fast spin echo through the lumbar spine. In cases with scoliosis, additional coronal T2 fast spin echo may be performed. After the administration of contrast, sagittal and axial T1 spin echo with fat saturation through the lumbar spine. COMPARISON: [facility], , MR LUMBAR SPINE WO CON, 05/27/2018, 17:08. [facility], CR, XR LUMBAR SPINE 2 OR 3 VIEWS, 08/06/2019, 9:03. FINDINGS: Image quality: There is artifact associated with the metallic hardware. Alignment and curvature: Mild retrolisthesis can be seen at L5-S1. Marrow: Marrow is of normal overall signal. No acute vertebral body compression fractures. No suspicious marrow enhancement. Spinal cord: Conus medullaris terminates at the T12-L1 level. Visualized spinal cord demonstrates normal signal, without suspicious enhancement. Paraspinous soft tissues: No paravertebral masses or abnormal enhancement. Bilateral water appearing renal cysts are seen, which do not enhance. Postoperative changes are seen, with bilateral pedicle screws at the L1 through L4 levels. Disc spacers are seen throughout the fused region. There has been removal of portions of the posterior elements. T12-L1: The disc height is well-preserved. Loss of disc signal is seen at this level. Moderate disc bulge is seen, which is eccentric to the right. Mild to moderate facet hypertrophy can be seen. There is [id number] right-sided and left-sided neural foraminal narrowing. No central canal narrowing is seen. When comparison is made with the prior images, these findings are similar. L1-L2: Moderate generalized disc bulge is seen. Moderate facet joint hypertrophy is seen. At least moderate bilateral neural foraminal narrowing can be seen. Moderate central canal narrowing is seen. The degrees of degenerative narrowing appear improved compared to the preoperative MRI. L2-L3: Moderate generalized disc bulge is seen. At least moderate facet hypertrophy can be seen. There is moderate to severe bilateral neural foraminal narrowing seen, with an associated a degree of compression seen upon the exiting nerve roots. Moderate central canal narrowing is seen. The degrees of neural foraminal narrowing and central canal narrowing are improved compared to prior. L3-L4: Moderate generalized disc bulge is seen. There is moderate to severe bilateral neural foraminal narrowing seen, with an associated a degree of compression seen upon the exiting nerve roots. Moderate central canal narrowing is seen. The degrees neural foraminal narrowing and central canal narrowing are improved compared to 2018. L4-L5: Mild loss of disc height is seen. Loss of disc signal is seen. Moderate generalized disc bulge is seen. At least moderate facet hypertrophy can be seen. There is at least moderate bilateral neural foraminal narrowing seen. Mild central canal narrowing can be seen. When comparison is made with the prior images, these findings are similar. L5-S1: Moderate to severe loss of disc height and disc signal can be seen. Bridging posterior and anterior endplate osteophytes can be seen. Mild to moderate disc bulge is seen, which is eccentric to the right. At least moderate facet hypertrophy is seen. There is at least moderate left-sided and moderate right-sided neural foraminal narrowing. No significant central canal narrowing can be seen. When comparison is made with the prior images, these findings are similar. IMPRESSION: Postoperative changes are seen, with improvement in the degrees of narrowing compared to the preoperative MRI. Dictated by: Juan Salinas M.D. on 02/06/2023 at 12:40 Approved by: Juan Salinas M.D. on 02/06/2023 at 12:46
--- NOTE | 2023-02-06 | DI.ECHO.S_ITS ---
[facility] +---------+ : : [address] : : : : [address] : : : : Phone: [phone]+ Echocardiogram Report + + :Name: ANITA FIGUEROA Study Date: 02/06/2023 Height: 68 in : :[facility] ReadingLocation: Weight: 190 lb : : Gender: Male BSA: 2.0 m2 : :: 1940 Age: 82 yrs BP: 131/67 mmHg: :Reason For Study: PALPITATIONS : :Ordering Physician: SILKE, : :ANTHONY Performed By: Kari Hancock : :Referring: ANTHONY EDOUARD : + + Interpretation Summary The ejection fraction is estimated to be 60-65%. Diastolic parameters suggest probable normal left ventricular diastolic function and normal filling pressures. The right ventricle is normal in size and function. There is mild mitral regurgitation. There is trace aortic regurgitation. Pulmonary artery pressures cannot be estimated because of the lack of a measurable TR jet velocity. Procedure: A two-dimensional transthoracic echocardiogram with color flow and Doppler was performed. The study quality was technically adequate. There is no prior echocardiogram noted for this patient. The patient was in sinus bradycardia with heart rates between 56-67 bpm during the exam. The patient had a bundle branch block rhythm during the exam. Left Ventricle: The left ventricle is normal in size and wall thickness. The ejection fraction is estimated to be 60-65%. Diastolic parameters suggest probable normal left ventricular diastolic function and normal filling pressures. Right Ventricle: The right ventricle is normal in size and function. Atria: The left atrial size is normal. Right atrial size is normal. There is no Doppler evidence for an interatrial shunt. Mitral Valve: The mitral valve is normal. There is mild mitral regurgitation. Aortic Valve: The aortic valve is trileaflet. The aortic valve opens well. There is no aortic valve stenosis. There is trace aortic regurgitation. Tricuspid Valve: The tricuspid valve is normal in structure and function. There is trace tricuspid regurgitation. Pulmonary artery pressures cannot be estimated because of the lack of a measurable TR jet velocity. Pulmonic Valve: The pulmonic valve leaflets are thin and pliable; valve motion is normal. There is mild pulmonic regurgitation. Great Vessels: The aortic root is normal size. The dimensions of the ascending aorta are normal. The IVC is of normal diameter and collapses greater than 50% with a sniff. This suggests a low right atrial pressure of 3 mm Hg. Pericardium/ Pleura There is no pericardial effusion. There is no pleural effusion. MMode/2D Measurements & Calculations LVIDd: 4.4 cm LVOT diam: 2.0 cm LVIDs: 3.0 cm Ao root diam: 3.1 cm FS: 32.1 % asc Aorta Diam: 3.3 cm EPSS: 1.1 cm IVSd: 1.2 cm LVPWd: 1.1 cm LV vogel. diameter/BSA (cm/m^2): 2.2 LV sys. diameter/BSA (cm/m^2): 1.5 LA A2 area: 20.2 cm2 RA long axis: 5.4 cm LA A4 area: 19.1 cm2 RA area: 18.1 cm2 LA length (vol): 5.6 cm RA vol: 51.8 ml LA vol: 58.7 ml RA : 25.9 ml/m2 LA vol index: 29.4 ml/m2 IVC diam: 1.8 cm RVD1 (basal): 3.8 cm RVD2 (mid): 2.9 cm TAPSE: 2.2 cm Doppler Measurements & Calculations Ao V2 max: 181.4 cm/sec LVOT Max Rodo: 107.4 cm/sec Ao V2 mean: 122.2 cm/sec LV V1 max P.6 mmHg Ao max P.2 mmHg LV V1 VTI: 22.8 cm Ao mean P.7 mmHg NANI(I,D): 1.8 cm2 Ao V2 VTI: 38.1 cm NANI(V,D): 1.8 cm2 sev ratio: 0.60 NANI indexed to BSA (cm^2/m^2): 0.91 MV E max rodo: 77.7 cm/sec PA V2 max: 118.4 cm/sec MV A max rodo: 103.3 cm/sec PA V2 mean: 87.1 cm/sec MV E/A: 0.75 PA mean P.3 mmHg Med Peak E' Rodo: 6.0 cm/sec PA pr(Accel): 39.6 mmHg E/E' med: 12.9 Lat Peak E' Rodo: 7.6 cm/sec E/E' lat: 10.3 E/e' average: 11.6 MV dec time: 0.34 sec SV(LVOT): 69.4 ml Reading Physician:02:10 PM
== END ==
LOC: ECHO 09:18
PROVIDERS: PCP Internal Medicine; Referring Provider Internal Medicine; Visit Provider Internal Medicine
DX: I34.0 Nonrheumatic mitral (valve) insufficiency (principal); I37.1 Nonrheumatic pulmonary valve insufficiency; R00.2 Palpitations; M48.061 Spinal stenosis, lumbar region without neurogenic claudication
CPT/HCPCS: 72158; 93306

== ENCOUNTER → 2024-11-02 09:30 | Outpatient (CLI) | payer MEDICARE, SELFPAY ==
[2018-11-08 16:13] VITALS: BMI 27.4
--- NOTE | 2024-11-02 09:32 | DI.MRI.S_ITS ---
PROCEDURE: MR SHOULDER LT WO CON INDICATIONS: left rotator cuff tear TECHNIQUE: Noncontrast oblique coronal T2 fast spin echo with fat saturation, oblique sagittal T1 spin echo and T2 fast spin echo with fat saturation, axial T1 spin echo and T2 fast spin echo with fat saturation through the shoulder. COMPARISON: [facility], CR, XR SHOULDER 2+ VIEWS LEFT, 10/28/2024, 16:02. FINDINGS: Image quality: Excellent. Rotator cuff: Moderate grade articular surface partial-thickness tear involving distal supraspinatus at its insertion on the humeral head is seen with focal full-thickness perforation involving anterior fibers of distal supraspinatus approximately 1.2 cm from its insertion on humeral head. No significant medial retraction of torn tendon fibers. Low-grade articular surface partial-thickness tear involving distal infraspinatus at its insertion on the humeral head is seen. Moderate grade intrasubstance partial-thickness tear involving superior to mid fibers of distal subscapularis is noted with medial retraction of torn tendon fibers. Sagittal images demonstrate mild supraspinatus muscle atrophy. Bones and bursae: Moderate acromioclavicular joint and glenohumeral joint osteoarthritic changes are seen. No acute fracture or dislocation. Type 2 acromion without os acromiale. Moderate joint effusion and subacromial subdeltoid bursal fluid, with suggestion of loose body measures 8 x 7 mm in size within subacromial subdeltoid bursa above the musculotendinous junction of supraspinatus series 8, image 14. Capsule and soft tissues: Extensive signal abnormality and fraying throughout superior labrum suggestive of extensive superior labral tear. There is suggestion of torn proximal long head of biceps tendon at its proximal insertion with distal retraction of torn tendon fibers to the level of greater tuberosity within bicipital groove. IMPRESSION: 1. Moderate grade articular surface partial-thickness tear involving distal supraspinatus with focal full-thickness perforation involving anterior fibers of distal supraspinatus approximately 1.2 cm from its insertion on humeral head. Mild supraspinatus muscle atrophy. 2. Low-grade articular surface partial-thickness tear involving distal infraspinatus. Moderate grade intrasubstance partial-thickness tear involving superior to mid fibers of distal subscapularis. 3. Moderate acromioclavicular joint and glenohumeral joint osteoarthritis. No acute fracture or dislocation. Moderate amount of joint effusion and subacromial subdeltoid bursal fluid. Suggestion of 8 x 7 mm loose body in subacromial subdeltoid bursa above the musculotendinous junction of supraspinatus. 4. Suggestion of extensive superior glenoid labral tear. 5. Suggestion of torn proximal long head of biceps tendon with distal retraction of torn tendon fibers to the level of greater tuberosity within bicipital groove. Dictated by: Obey Romero M.D. on 11/03/2024 at 14:41 Approved by: Obey Romero M.D. on 11/03/2024 at 14:47
== END ==
PROVIDERS: PCP Internal Medicine; Referring Provider Physician Assistant; Visit Provider Physician Assistant
DX: S46.012A Strain of muscle(s) and tendon(s) of the rotator cuff of left shoulder, initial encounter (principal); M19.012 Primary osteoarthritis, left shoulder; M25.412 Effusion, left shoulder; X58.XXXA Exposure to other specified factors, initial encounter
CPT/HCPCS: 73221